=== PATIENT | female | born 1985 | race African-American/Black ===

== ENCOUNTER 2022-02-02 02:40 | Inpatient (IN) | payer MEDICAID ==
[~2022-02-02] VITALS: Ht 162.6 cm; Wt 71.7 kg
[2022-02-02] MEDS ORDERED: METHYLPREDNISOLONE SOD SUCC 125 MG/2 ML VIAL IV STA (02:46)
[2022-02-02] MEDS ORDERED: IPRATROPIUM BROMIDE (0.02%) 0.5MG/2.5ML NEB HHN STA (02:46)
[2022-02-02] MEDS ORDERED: MAGNESIUM 2 G PREMIX 50 ML IV ONE (03:00)
[2022-02-02 03:11] LABS: BASOPHILS % 0.4 % (0.0-2.0); HEMATOCRIT. 37.2 % (36.0-48.0); HEMOGLOBIN. 12.3 g/dL (12.0-16.0); LYMPHOCYTES % 43.3 % (20.0-50.0); MEAN CORPUSCULAR HEMOGLOBIN 27.9 pg (28.0-32.0); MEAN CORPUSCULAR VOLUME 84.4 fL (81.0-99.0); MEAN PLATELET VOLUME 8.4 fl (7.4-10.4); MONOCYTES % 11.8 % (2.0-8.0); NEUTROPHILS % 42.5 % (40.0-76.0); PLATELET 267 x1000/uL (130-400); RED BLOOD CELL COUNT 4.41 mill/uL (4.2-5.4); RED CELL DISTRIBUTION WIDTH 14.4 % (11.6-14.6)
[2022-02-02] MEDS: ALBUTEROL (0.083%) 2.5MG/3ML NEB HHN SCH ×2 (03:25→09:11)
[2022-02-02 03:26] LABS: CHLORIDE 104 mEq/L (98-107)
[2022-02-02 04:24] LABS: BG BASE EXCESS -2.8 mmol/L (-2.0-2.0); BG CARBOXYHEMOGLOBIN 0.3 % (0.5-1.5); BG DEOXYHEMOGLOBIN 21.6 % (0.0-5.0); BG FRACTION INSPIRED OXYGEN 50; BG HCO3 ACT 23.7 mmol/L (22.0-26.0); BG METHEMOGLOBIN 0.7 % (0.0-1.5); BG OXYGEN SATURATION 78.2 % (92.0-98.5); BG OXYHEMOGLOBIN 77.4 % (94.0-97.0); BG PCO2 48.2 mmHg (35.0-45.0); BG PO2 47.5 mmHg (75.0-100.0); BG TOTAL HEMOGLOBIN 12.1 g/dL (12.0-18.0); BG VENT MODE MASK - BIPAP
[2022-02-02] MEDS ORDERED: ACETAMINOPHEN 325MG TABLET PO PRN (08:45)
[2022-02-02] MEDS ORDERED: MORPHINE SULFATE 2 MG/ML CPJ (NOT FOR IM USE) IV PRN (08:45)
[2022-02-02] MEDS ORDERED: GUAIFENESIN 200MG/10ML SUGAR FREE UDC PO PRN (08:45)
[2022-02-02] MEDS ORDERED: HYDROCODONE/ACETAMINOPHEN 5/325MG TABLET PO PRN (08:45)
[2022-02-02] MEDS ORDERED: MAGNESIUM/ALUMINUM HYDROXIDE/SIMETHICONE 30ML UDC PO PRN (08:45)
[2022-02-02] MEDS ORDERED: CLONIDINE 0.1MG TABLET PO PRN (08:45)
[2022-02-02] MEDS ORDERED: LORAZEPAM 2MG/ML CPJ IV PRN (08:45)
[2022-02-02] MEDS ORDERED: ONDANSETRON HCL 4MG/2ML INJ IV PRN (08:45)
[2022-02-02] MEDS ORDERED: DIPHENHYDRAMINE 50MG/ML VIAL IV PRN (08:45)
[2022-02-02] MEDS ORDERED: DOCUSATE SODIUM 100MG CAPSULE PO PRN (08:45)
[2022-02-02] MEDS ORDERED: NALOXONE HCL 0.4MG/ML VIAL IV PRN (08:45)
[2022-02-02] MEDS ORDERED: HYDRALAZINE 20MG/ML VIAL IV PRN (08:45)
[2022-02-02] MEDS ORDERED: IPRATROPIUM/ALBUTEROL 0.5-3(2.5)MG/3ML NEB HHN PRN (08:45)
[2022-02-02] MEDS ORDERED: METHYLPREDNISOLONE SOD SUCC 125 MG/2 ML VIAL IV SCH ×2 (09:00→17:00)
[2022-02-02] MEDS: ENOXAPARIN 40MG/0.4ML SYR SUBCUT SCH (09:56)
[2022-02-02 10:02] LABS: BG BASE EXCESS -3.8 mmol/L (-2.0-2.0); BG CARBOXYHEMOGLOBIN 0.2 % (0.5-1.5); BG DEOXYHEMOGLOBIN 3.9 % (0.0-5.0); BG FRACTION INSPIRED OXYGEN 21; BG HCO3 ACT 20.5 mmol/L (22.0-26.0); BG METHEMOGLOBIN 0.3 % (0.0-1.5); BG OXYGEN SATURATION 96.1 % (92.0-98.5); BG OXYHEMOGLOBIN 95.6 % (94.0-97.0); BG PCO2 34.6 mmHg (35.0-45.0); BG PO2 85.5 mmHg (75.0-100.0); BG SAMPLE SITE RIGHT RADIAL; BG TOTAL HEMOGLOBIN 12.6 g/dL (12.0-18.0); BG VENT MODE ROOM AIR
[2022-02-02] MEDS: SODIUM CHLORIDE 0.9% INJ 3ML FLUSH IVF SCH ×2 (14:29→21:08)
[2022-02-02] MEDS: LORATADINE 10MG TABLET PO SCH (14:56)
[2022-02-02 16:00] VITALS: BP 121/68
[2022-02-02 17:19] VITALS: BP 125/76
[2022-02-02] MEDS ORDERED: ALBU4TAB6 MT (17:51)
[2022-02-02] MEDS ORDERED: CICL6.1H2 INH (17:51)
[2022-02-02] MEDS ORDERED: CICL90CR11 TP (17:51)
[2022-02-02 20:00] VITALS: BP 125/62
[2022-02-02] MEDS: IPRATROPIUM/ALBUTEROL 0.5-3(2.5)MG/3ML NEB HHN SCH ×2 (20:33→21:01)
[2022-02-02] MEDS: FAMOTIDINE 20MG TABLET PO SCH (21:01)
[2022-02-02] MEDS: METHYLPREDNISOLONE SOD SUCC 40 MG/ML VIAL IV SCH (21:06)
[2022-02-03] VITALS: BP 128/75
[2022-02-03 04:00] VITALS: BP 114/71
[2022-02-03] MEDS: METHYLPREDNISOLONE SOD SUCC 40 MG/ML VIAL IV SCH ×3 (06:42→21:35)
[2022-02-03] MEDS: SODIUM CHLORIDE 0.9% INJ 3ML FLUSH IVF SCH ×3 (06:42→21:39)
[2022-02-03 07:49] LABS: HEMATOCRIT. 37.4 % (36.0-48.0); HEMOGLOBIN. 12.3 g/dL (12.0-16.0); MEAN CORPUSCULAR HEMOGLOBIN 27.6 pg (28.0-32.0); MEAN CORPUSCULAR VOLUME 83.7 fL (81.0-99.0); MEAN PLATELET VOLUME 8.7 fl (7.4-10.4); PLATELET 283 x1000/uL (130-400); RED BLOOD CELL COUNT 4.47 mill/uL (4.2-5.4); RED CELL DISTRIBUTION WIDTH 15.1 % (11.6-14.6)
[2022-02-03 08:00] VITALS: BP 122/75
[2022-02-03 08:09] LABS: CHLORIDE 106 mEq/L (98-107)
[2022-02-03] MEDS: ENOXAPARIN 40MG/0.4ML SYR SUBCUT SCH (08:26)
[2022-02-03] MEDS: FAMOTIDINE 20MG TABLET PO SCH ×2 (08:28→21:35)
[2022-02-03] MEDS: LORATADINE 10MG TABLET PO SCH (08:28)
[2022-02-03 10:04] LABS: PLATELET ESTIMATE NORMAL
[2022-02-03] MEDS ORDERED: LOPERAMIDE HCL 2MG CAPSULE PO NR (12:00)
[2022-02-03 20:00] VITALS: BP 109/76
[2022-02-03] MEDS: IPRATROPIUM/ALBUTEROL 0.5-3(2.5)MG/3ML NEB HHN SCH (21:39)
[2022-02-04] VITALS: BP 112/77
[2022-02-04] MEDS: IPRATROPIUM/ALBUTEROL 0.5-3(2.5)MG/3ML NEB HHN SCH ×4 (01:39→12:00)
[2022-02-04 04:00] VITALS: BP 110/60
[2022-02-04] MEDS: METHYLPREDNISOLONE SOD SUCC 40 MG/ML VIAL IV SCH (06:14)
[2022-02-04] MEDS: SODIUM CHLORIDE 0.9% INJ 3ML FLUSH IVF SCH (06:14)
[2022-02-04 08:00] VITALS: BP 115/80
[2022-02-04] MEDS: ENOXAPARIN 40MG/0.4ML SYR SUBCUT SCH (09:00)
[2022-02-04] MEDS: FAMOTIDINE 20MG TABLET PO SCH (09:00)
[2022-02-04] MEDS: LORATADINE 10MG TABLET PO SCH (09:37)
[2022-02-04 11:44] VITALS: BP 122/84
[2022-02-04 12:00] VITALS: BP 120/80
== END 2022-02-04 13:10 | disposition home or self-care (01) | DRG 133 ==
LOC: ER 02:40 → 7WST 05:44 → EDBEDREQ 09:37 → EDBEDREQSVC 09:37 → EDBEDREQTM 09:37 → ENRESERV 14:20 → CANBEDREQ 20:11
PROVIDERS: ADMIT Internal Medicine; ATTEND Internal Medicine
PROC: 5A09357 Assistance with Respiratory Ventilation, Less than 24 Consecutive Hours, Continuous Positive Airway Pressure (ICD-10-PCS; principal; 2022-02-02)
DX: J96.01 Acute respiratory failure with hypoxia (principal); E87.2 Acidosis; Z20.822 Contact with and (suspected) exposure to COVID-19; J45.901 Unspecified asthma with (acute) exacerbation; R19.7 Diarrhea, unspecified; Z87.11 Personal history of peptic ulcer disease
CPT/HCPCS: 36415; 36600; 71045; 80053; 82375; 82805; 83605; 83880; 84443; 85025; 85379; 87426; 87493; 94640; 94660; 99291; J1650; J2920; J2930; J3475